=== PATIENT | male | born 1965 | race Caucasian/White ===

== ENCOUNTER 2016-09-15 11:51 | Day surgery (SDC) | payer OTHER ==
[~2016-09-15] VITALS: Ht 167.6 cm; Wt 93.2 kg
[2016-09-15 12:26] VITALS: Ht 167.6 cm; Wt 93.2 kg
[2016-09-15] MEDS ORDERED: ACET-2158 GTB (12:32)
[2016-09-15 12:43] VITALS: BP 122/80; PULSE 80; RESP 24
--- NOTE | 2016-09-15 13:59 | GILP ---
DATE OF PROCEDURE: PREOPERATIVE DIAGNOSIS: Screening colonoscopy. POSTOPERATIVE DIAGNOSIS: Normal colonoscopy, normal colon. DESCRIPTION OF PROCEDURE: The patient was put in left lateral decubitus after obtaining informed co nsent. Two mg IV Versed and 100 mcg of fentanyl were given in small doses. Rectal exam done which was normal. Advanced an Olympus video colonoscope all the way to cecum. Appendiceal opening and il eocecal valve were identified. Cecum, ascending colon, transverse colon, descending colon, sigmoid colon and rectum normal. Retroflexion in the rectum also normal. Postop, patient had no complicati on. I advised him to follow up with primary MD. Repeat colonoscopy in 10 years and if he has any o ther GI symptoms, I will see him in followup. Dictated By: TAY JONES Conf#: [id number] DID#: [id number] CC: Albino Dee MD;*EndCC*
[2016-09-15] MEDS ORDERED: MIDAZOLAM 1 MG/ML 2 ML INJ ONE (14:11)
[2016-09-15] MEDS ORDERED: FENTAnyl 50 MCG/ML VIAL ONE (14:11)
[2016-09-15 14:27] VITALS: BP 121/87; PULSE 96; RESP 12
== END 2016-09-15 15:20 | disposition home or self-care (01) ==
LOC: GIL 11:51
PROVIDERS: ATTEND Internal Medicine
DX: Z12.11 Encounter for screening for malignant neoplasm of colon (principal); J45.909 Unspecified asthma, uncomplicated; E78.5 Hyperlipidemia, unspecified
CPT/HCPCS: 45378; J2250; J3010; Z7610